=== PATIENT | male | born 1985 | race Caucasian/White ===

== ENCOUNTER → 2017-10-09 | Emergency (ER) | payer OTHER ==
[~2017-10-09] VITALS: Ht 177.8 cm; Wt 79.8 kg
[~2017-10-09] MED LIST: ALLEGRA ALLERG180 MG PO; DIOVAN160 M1; GILTUSS TR TAB1 EACH PO; KETO10TA2 PO; TENCON TABLET1 TAB PO; TESSALON PERLE100 MG PO
== END | disposition home or self-care (01) ==
LOC: ER 11:53
DX: R10.32 Left lower quadrant pain (principal)